=== PATIENT | male | born 1970 | race Two or more races ===

== ENCOUNTER 2017-11-19 18:16 | Emergency (ER) | payer OTHER ==
[~2017-11-19] VITALS: Ht 182.9 cm; Wt 99.8 kg
[~2017-11-19 18:16] MED LIST: AMLO5TAB2 PO; ATEN25TA PO
[2017-11-19] MEDS ORDERED: NITROGLYCERIN 0.4 MG/TAB BOTTLE ONE (18:27)
[2017-11-19] MEDS ORDERED: NITROGLYCERIN 0.4 MG/TAB BOTTLE SL ONE (18:30)
[2017-11-19] MEDS ORDERED: ASPIRIN 325 MG TABLET PO ONE (18:30)
--- NOTE | 2017-11-19 18:30 | NUR ---
Pt c/o CP/pressure x 3-4 hours [employer], denies radiation, unprovoked, currently 04/04. Pt denies SOB, dizziness, n/v, no other complaints, no distress noted.
--- NOTE | 2017-11-19 18:35 | NUR ---
pt pain now 4/10, down from 5/10 prior to nitro admin. 129/72
[2017-11-19 18:50] LABS: BASOPHILS # (AUTO) 0.1 /CMM (0.0-0.2); BASOPHILS % (AUTO) 0.7 % (0.0-2.0); EOSINOPHILS # (AUTO) 0.1 /CMM (0.0-0.7); EOSINOPHILS % (AUTO) 1.1 % (0.0-6.0); HEMATOCRIT 44 % (39-51); HEMOGLOBIN 15.3 g/dL (13.5-17.5); LYMPHOCYTES # (AUTO) 2.7 /CMM (0.8-4.8); LYMPHOCYTES % (AUTO) 28.9 % (20.0-44.0); MEAN CORPUSCULAR HEMOGLOBIN 31 PG (26.0-33.0); MEAN CORPUSCULAR HGB CONC 35 g/dl (31.0-36.0); MEAN CORPUSCULAR VOLUME 90 fL (80-96); MONOCYTES # (AUTO) 0.7 /CMM (0.1-1.30); MONOCYTES % (AUTO) 7.7 % (2.0-12.0); NEUTROPHILS # (AUTO) 5.8 /CMM (1.8-8.9); NEUTROPHILS % (AUTO) 61.6 % (43.0-81.0); PLATELET COUNT (AUTO) 238 /CMM (150-450); RDW COEFFICIENT OF VARIATION 13.2 (11.5-15.0); RED BLOOD CELL COUNT(AUTO) 4.86 MIL/uL (4.5-6.0); WHITE BLOOD COUNT (AUTO) 9.4 K/uL (4.3-11.0)
[2017-11-19 18:57] LABS: CALCIUM, SERUM 9.5 mg/dL (8.5-10.1); CARBON DIOXIDE 32 mmol/L (21-32); CHLORIDE 104 mmol/L (98-107); CREATININE 1.5 mg/dL (0.6-1.3); GLUCOSE 100 mg/dL (74-106); POTASSIUM 4.4 mmol/L (3.5-5.1); SODIUM SERUM 140 mmol/L (136-145); UREA NITROGEN, BLOOD 22 mg/dL (7-18)
[2017-11-19] MEDS ORDERED: ASPIRIN 325 MG TABLET ONE (18:59)
[2017-11-19 19:05] LABS: TROPONIN I < 0.017 ng/mL (0.00-0.056)
[2017-11-19 19:09] LABS: INR 0.9 (0.87-1.13); PROTHROMBIN TIME 9.4 SECS (9.5-12.7)
--- NOTE | 2017-11-19 19:28 | NUR ---
RECEIVED REPORT FROM TOLU YEE PATIENT. PT IS COMFORTABLE AND STATES CP 3/10 AT THIS MOMENT AFTER PRIOR MEDICATION TREATMENT. WILL CONTINUE TO MONITOR FOR ANY CHANGES
--- NOTE | 2017-11-19 19:50 | NUR ---
IV removed. Catheter intact and site benign. Pressure and 4x4 applied to site. No bleeding noted. Patient discharged to home in stable condition. Written and verbal after care instructions given. Patient verbalizes understanding of instruction. ambulatory with a steady gait. instructed not to drive. pt verbalize understanding.
[2017-11-19 19:51] VITALS: BP 131/72
== END 2017-11-19 19:53 | disposition home or self-care (01) ==
LOC: ER 18:18
DX: R07.89 Other chest pain (principal); I10 Essential (primary) hypertension; I25.2 Old myocardial infarction; M10.9 Gout, unspecified
CPT/HCPCS: 36415; 71010-TC; 80048-TC; 84484-TC; 85025-TC; 85730-TC; A4606; Z7610

== ENCOUNTER 2020-08-29 12:54 | Emergency (ER) | payer OTHER ==
[~2020-08-29 12:54] MED LIST changes: -AMLO5TAB2 PO; +AMLO5TAB9 PO
== END 2020-08-29 16:42 | disposition home or self-care (01) ==
DX: R07.89 Other chest pain (principal); M79.622 Pain in left upper arm; I10 Essential (primary) hypertension; I25.2 Old myocardial infarction; M10.9 Gout, unspecified; Z79.899 Other long term (current) drug therapy

== ENCOUNTER 2024-04-01 13:42 | Emergency (ER) | payer OTHER ==
[~2024-04-01] VITALS: Ht 180.3 cm; Wt 104.8 kg
[~2024-04-01 13:42] MED LIST changes: +AMLO-212 PO; -AMLO5TAB9 PO
[2024-04-01] MEDS ORDERED: ACET-2812 PO (15:41)
[2024-04-01] MEDS ORDERED: COLC0.6T67 PO (15:41)
[2024-04-01] MEDS ORDERED: ALLO300T2 PO (15:41)
[2024-04-01] MEDS ORDERED: LISI20TA30 PO (15:41)
[2024-04-01] MEDS ORDERED: ASPI-1420 PO (15:41)
[2024-04-01 16:11] LABS: BASOPHILS % (AUTO) 0.3 % (0.0-2.0); EOSINOPHILS % (AUTO) 0.4 % (0.0-6.0); HEMATOCRIT 44 % (39-51); HEMOGLOBIN 14.9 g/dL (13.5-17.5); LYMPHOCYTES # (AUTO) 2.8 K/uL (0.8-4.8); LYMPHOCYTES % (AUTO) 25.7 % (20.0-44.0); MEAN CORPUSCULAR HEMOGLOBIN 31 PG (26.0-33.0); MEAN CORPUSCULAR HGB CONC 34 g/dl (31.0-36.0); MEAN CORPUSCULAR VOLUME 92 fL (80-96); MONOCYTES # (AUTO) 0.5 K/uL (0.1-1.30); NEUTROPHILS # (AUTO) 7.4 K/uL (1.8-8.9); NEUTROPHILS % (AUTO) 68.6 % (43.0-81.0); PLATELET COUNT (AUTO) 248 K/uL (150-450); RED BLOOD CELL COUNT(AUTO) 4.82 MIL/uL (4.5-6.0); RED CELL DISTRIBUTION WIDTH 14.1 % (11.5-15.0); WHITE BLOOD COUNT (AUTO) 10.7 K/uL (4.3-11.0)
[2024-04-01 16:24] LABS: CALCIUM, SERUM 9.2 mg/dL (8.5-10.1); CARBON DIOXIDE 28 mmol/L (21-32); CHLORIDE 103 mmol/L (98-107); CREATININE 1.6 mg/dL (0.6-1.3); GLUCOSE 115 mg/dL (74-106); POTASSIUM 3.3 mmol/L (3.5-5.1); SODIUM SERUM 140 mmol/L (136-145); UREA NITROGEN, BLOOD 17 mg/dL (7-18)
[2024-04-01 16:30] LABS: ALANINE AMINOTRANSFERASE 44 U/L (12-78); ALBUMIN 3.9 g/dL (3.4-5.0); ALKALINE PHOSPHATASE 71 U/L (46-116); ASPARTATE AMINOTRANSFERASE 24 U/L (15-37); BILIRUBIN,DIRECT 0.2 mg/dL (0.0-0.2); BILIRUBIN,TOTAL 0.7 mg/dL (0.2-1.0); TOTAL PROTEIN, SERUM 8.1 g/dL (6.4-8.2)
[2024-04-01] MEDS ORDERED: ASPIRIN 325 MG TABLET ONE (16:34)
[2024-04-01] MEDS ORDERED: NITROGLYCERIN PACKET 1 GM PACKET ONE (16:34)
[2024-04-01] MEDS: ASPIRIN 325 MG TABLET PO ONE (16:40)
[2024-04-01] MEDS: NITROGLYCERIN PACKET 1 GM PACKET TD ONE (16:40)
[2024-04-01 19:13] VITALS: BP 132/84; TEMP 98.7; O2SAT 96
== END 2024-04-01 19:13 | disposition home or self-care (01) ==
LOC: ER 13:48
DX: R07.2 Precordial pain (principal); I11.0 Hypertensive heart disease with heart failure; I50.89 Other heart failure; M10.9 Gout, unspecified
CPT/HCPCS: 36415; 71045-TC; 80048-TC; 80076-TC; 84484-TC; 85025-TC

== ENCOUNTER 2025-01-07 12:21 | Emergency (ER) | payer OTHER ==
[~2025-01-07] VITALS: Ht 177.8 cm; Wt 106.6 kg
[~2025-01-07 12:21] MED LIST changes: +ACET-2812 PO; +ALLO300T2 PO; -AMLO-212 PO; +ASPI-1420 PO; -ATEN25TA PO; +COLC0.6T67 PO; +LISI20TA30 PO
[2025-01-07 13:02] LABS: BASOPHILS % (AUTO) 0.4 % (0.0-2.0); EOSINOPHILS % (AUTO) 0.5 % (0.0-6.0); HEMATOCRIT 45 % (39-51); HEMOGLOBIN 15.5 g/dL (13.5-17.5); LYMPHOCYTES % (AUTO) 21.3 % (20.0-44.0); MEAN CORPUSCULAR HEMOGLOBIN 32 PG (26.0-33.0); MEAN CORPUSCULAR HGB CONC 35 g/dl (31.0-36.0); MEAN CORPUSCULAR VOLUME 93 fL (80-96); MONOCYTES # (AUTO) 0.6 K/uL (0.1-1.30); MONOCYTES % (AUTO) 6.1 % (2.0-12.0); NEUTROPHILS # (AUTO) 6.6 K/uL (1.8-8.9); NEUTROPHILS % (AUTO) 71.7 % (43.0-81.0); PLATELET COUNT (AUTO) 249 K/uL (150-450); RED BLOOD CELL COUNT(AUTO) 4.84 MIL/uL (4.5-6.0); RED CELL DISTRIBUTION WIDTH 13.7 % (11.5-15.0); WHITE BLOOD COUNT (AUTO) 9.2 K/uL (4.3-11.0)
[2025-01-07 13:14] LABS: CALCIUM, SERUM 9.4 mg/dL (8.5-10.1); CARBON DIOXIDE 30 mmol/L (21-32); CHLORIDE 103 mmol/L (98-107); CREATININE 1.5 mg/dL (0.6-1.3); GLUCOSE 93 mg/dL (74-106); SODIUM SERUM 141 mmol/L (136-145); UREA NITROGEN, BLOOD 20 mg/dL (7-18)
[2025-01-07 16:30] VITALS: BP 133/65; TEMP 98; O2SAT 99
== END 2025-01-07 16:49 | disposition home or self-care (01) ==
LOC: ER 12:39
DX: R07.89 Other chest pain (principal); I10 Essential (primary) hypertension; I25.10 Atherosclerotic heart disease of native coronary artery without angina pectoris; I25.2 Old myocardial infarction; M10.9 Gout, unspecified; Z79.82 Long term (current) use of aspirin; Z79.899 Other long term (current) drug therapy
CPT/HCPCS: 36415; 71045-TC; 80048-TC; 84484-TC; 85025-TC

== ENCOUNTER 2025-08-20 17:21 | Emergency (ER) | payer OTHER ==
[~2025-08-20] VITALS: Ht 180.3 cm; Wt 106.6 kg
[2025-08-20 17:28] VITALS: TEMP 98.1
[2025-08-20 18:00] LABS: PLATELET COUNT (AUTO) 233 K/uL (150-450); RED BLOOD CELL COUNT(AUTO) 4.78 MIL/uL (4.5-6.0); RED CELL DISTRIBUTION WIDTH 14.0 % (11.5-15.0); WHITE BLOOD COUNT (AUTO) 8.5 K/uL (4.3-11.0)
[2025-08-20 18:09] LABS: CALCIUM, SERUM 9.3 mg/dL (8.5-10.1); CREATININE 1.3 mg/dL (0.6-1.3); SODIUM SERUM 137 mmol/L (136-145); UREA NITROGEN, BLOOD 30 mg/dL (7-18)
[2025-08-20 20:49] VITALS: BP 120/82; O2SAT 98
== END 2025-08-20 20:48 | disposition home or self-care (01) ==
LOC: ER 17:41
DX: R07.89 Other chest pain (principal); M54.9 Dorsalgia, unspecified; I10 Essential (primary) hypertension; M10.9 Gout, unspecified; Z79.82 Long term (current) use of aspirin; Z79.899 Other long term (current) drug therapy; Z86.79 Personal history of other diseases of the circulatory system
CPT/HCPCS: 36415; 71045-TC; 80048-TC; 84484-TC; 85025-TC